=== PATIENT | female | born 1975 ===

== ENCOUNTER 2024-09-21 03:38 | Emergency (ER) | payer SELFPAY ==
[2024-09-21] MEDS ORDERED: Sodium Chloride 0.9% 10 ML Syringe FLUSH PRN (03:57)
[2024-09-21 04:14] LABS: BASOPHILS PERCENT AUTO 0.2 % (0.0-1.0); EOSINOPHILS ABSOLUTE AUTO 0.1 K/mm3 (0.0-0.4); HEMATOCRIT 38.3 % (37.0-47.0); HEMOGLOBIN 12.5 gm/dl (12.0-16.0); IMMATURE GRAN ABSOLUTE AUTO 0.07 K/mm3 (0.00-0.05); IMMATURE GRAN PERCENT AUTO 0.5 % (0.0-0.4); LYMPHOCYTES ABSOLUTE AUTO 0.6 K/mm3 (1.0-4.8); LYMPHOCYTES PERCENT AUTO 4.3 % (24.0-44.0); MEAN CORPUSCULAR HEMOGLOBIN 30.7 pg (28.0-32.0); MEAN CORPUSCULAR HGB CONC 32.6 g/dl (32.0-36.0); MEAN CORPUSCULAR VOLUME 94.1 fl (83.0-99.0); MEAN PLATELET VOLUME 10.3 fl (9.4-12.3); MONOCYTES ABSOLUTE AUTO 0.4 K/mm3 (0.0-0.8); NEUTROPHILS ABSOLUTE AUTO 11.7 K/mm3 (1.8-7.7); PLATELET COUNT,PLT 185 K/mm3 (150-400); RED BLOOD CELL COUNT 4.07 M/mm3 (4.10-5.30); WHITE BLOOD CELL COUNT,WBC 12.85 K/mm3 (3.9-11.3)
[2024-09-21] MEDS: Iopamidol 612 MG/ML 100 ML Bottle IVPUSH ONE (04:28)
[2024-09-21] MEDS: Sodium Chloride 0.9% 10 ML Syringe FLUSH ONE (04:28)
[2024-09-21 04:36] LABS: A/G RATIO 0.5 (1-2); ALBUMIN 2.2 g/dl (3.4-5.0); ANION GAP 17.9 (5-15); BILIRUBIN TOTAL 0.3 mg/dL (0.2-1.0); BUN/CREATININE RATIO 13.5 (14-18); CALCIUM 9.3 mg/dL (8.5-10.1); CREATININE 1.7 mg/dL (0.55-1.02); EST CRCL DRUG DOSING (CG) 31.31 mL/min; POTASSIUM,K 3.9 mEq/L (3.5-5.1); PROTEIN TOTAL,TP 6.7 g/dl (6.4-8.2)
[2024-09-21 04:44] LABS: SLIDE REVIEW ABNORMAL SMEAR
[2024-09-21] MEDS: Sodium Chloride 0.9% 1,000 ML IV SCH (05:38)
[2024-09-21] MEDS: cefTRIAXone 2 GM in Sodium Chloride 0.9% 100 ML IV ONE (05:38)
[2024-09-21] MEDS: Sodium Chloride 0.9% 1,000 ML IV ONE (05:39)
[2024-09-21] MEDS: HYDROmorphone 0.5 MG/0.5 ML Syringe IVPUSH ONE (05:40)
[2024-09-21 06:00] LABS: APPEARANCE,URINE CLEAR (Clear); BILIRUBIN,URINE NEGATIVE (Negative); COLOR,URINE YELLOW (Yellow); GLUCOSE,URINE NEGATIVE (Negative); KETONES,URINE TRACE (Negative); LEUKOCYTE ESTERASE,URINE 1+ (Negative); NITRITE,URINE NEGATIVE (Negative); OCCULT BLOOD,URINE 2+ (Negative); PROTEIN,URINE 2+ (Negative); UROBILINOGEN,URINE 0.2 (0.2-1.0)
[2024-09-21 06:18] LABS: BACTERIA,URINE MODERATE /hpf (FEW); MUCUS,URINE RARE /hpf (FEW)
[2024-09-21] MEDS ORDERED: Sodium Chloride 0.9% 1,000 ML IV SCH (06:45)
[2024-09-21 06:47] LABS: LACTIC ACID 0.8 mmol/L (0.4-2.0)
== END 2024-09-21 07:53 ==
LOC: JD.ED 03:38
DX: N13.6 Pyonephrosis (principal)
CPT/HCPCS: 36415; 71046; 74177; 80053; 81001; 83605; 83690; 85025; 87040; 87086; 87088; 87186; 87428; 96365; 96366; 96375; 99285; J0696; J1171; J3490; J7030; Q9967